=== PATIENT | female | born 1980 | race Caucasian/White ===

== ENCOUNTER 2016-03-18 03:43 | Outpatient (CLI) | payer BC ==
[~2016-03-18] VITALS: Ht 160 cm; Wt 81.4 kg
[2016-03-18 04:10] VITALS: BP 118/75; PULSE 84; TEMP 97.8
[2016-03-18] MEDS ORDERED: PRENATAL PO (04:18)
[2016-03-18] MEDS ORDERED: TYLENOL PM EXTR1 TA1 PO (04:19)
[2016-03-18] MEDS ORDERED: TYLENOL SINUS1 EACH PO (04:20)
[2016-03-18 04:30] VITALS: BP 118/75; PULSE 84; TEMP 97.8
== END 2016-03-18 06:45 | disposition home or self-care (01) ==
LOC: LDRO 03:43
DX: O47.1 False labor at or after 37 completed weeks of gestation (principal); Z3A.37 37 weeks gestation of pregnancy

== ENCOUNTER 2016-04-12 06:33 | Inpatient (IN) | payer BC, OTHER ==
[2016-04-12] VITALS (53 sets, daily range): BP systolic 105–150; BP diastolic 61–97; PULSE 66–127; TEMP 97.8–98.7
[~2016-04-12] VITALS: Ht 157.5 cm; Wt 80.0 kg
[~2016-04-12 06:33] MED LIST: PRENATAL PO; TYLENOL PM EXTR1 TA1 PO; TYLENOL SINUS1 EACH PO
[2016-04-12 07:53] LABS: BASO % 0.3 % (0.0-2.0); EOS % 0.2 % (0-4.0); GRAN # 10.5 (1.4-6.5); GRAN % 83.9 % (42.2-75.2); HEMOGLOBIN 12.3 g/dl (12.5-16.0); LYMPH # 1.2 (1.2-3.4); LYMPH % 9.4 % (20.0-51.0); MEAN CELL VOLUME 83 fl (80.0-100.0); MEAN CORPUSCULAR HEMOGLOBIN 28 pg (27.0-31.0); MEAN CORPUSCULAR HGB CONC 34 g/dl (33.0-37.0); MEAN PLATELET VOLUME 11.6 fl (7.4-10.4); MONO # 0.7 (0.1-0.6); MONO % 5.6 % (1.7-9.3); PLATELET COUNT 241 K/mm3 (130-400); RED BLOOD COUNT 4.36 M/mm3 (4.10-5.30); REDCELL DISTRIBUTION WIDTH-CV 14.6 % (11.5-14.5); WHITE BLOOD COUNT 12.5 K/mm3 (4.8-10.8)
[2016-04-12 07:58] LABS: HEMATOCRIT 36.2 % (37.0-47.0)
[2016-04-13 03:00] VITALS: BP 106/61; PULSE 105; TEMP 98.2
[2016-04-13] MEDS ORDERED: IBU800 M1 PO (07:24)
[2016-04-13] MEDS ORDERED: PERCOCET 325 MG1 TA2 PO (07:25)
[2016-04-13 08:00] VITALS: BP 100/60; PULSE 82; TEMP 98.4
[2016-04-13 19:10] VITALS: BP 114/62; PULSE 96; TEMP 97.9
[2016-04-14 07:28] VITALS: BP 109/69; PULSE 86; TEMP 98.3
== END 2016-04-14 17:10 | disposition home or self-care (01) | DRG 775 ==
LOC: LDR 06:33 → OB 06:56 → LDR 06:56 → OB 22:50
PROVIDERS: Obstetrics & Gynecology
PROC: 10D07Z6 Extraction of Products of Conception, Vacuum, Via Natural or Artificial Opening (ICD-10-PCS; principal; 2016-04-12)
PROC: 0KQM0ZZ Repair Perineum Muscle, Open Approach (ICD-10-PCS; 2016-04-12)
PROC: 3E033VJ Introduction of Other Hormone into Peripheral Vein, Percutaneous Approach (ICD-10-PCS; 2016-04-12)
DX: O48.0 Post-term pregnancy (principal); O69.81X0 Labor and delivery complicated by cord around neck, without compression, not applicable or unspecified; O70.1 Second degree perineal laceration during delivery; O75.81 Maternal exhaustion complicating labor and delivery; Z3A.41 41 weeks gestation of pregnancy; Z37.0 Single live birth
CPT/HCPCS: J2590; J7120

== ENCOUNTER 2016-08-02 21:07 | Inpatient (IN) | payer BC, OTHER ==
[~2016-08-02] VITALS: Ht 160 cm; Wt 68.9 kg
[~2016-08-02 21:07] MED LIST changes: +IBU800 M1 PO; +PERCOCET 325 MG1 TA2 PO
[2016-08-02 22:04] LABS: BASO # 0.1 (0.0-0.2); BASO % 0.4 % (0.0-2.0); EOS % 0.3 % (0-4.0); GRAN # 11.4 (1.4-6.5); GRAN % 83.3 % (42.2-75.2); HEMATOCRIT 38.5 % (37.0-47.0); HEMOGLOBIN 12.8 g/dl (12.5-16.0); LYMPH # 1.5 (1.2-3.4); LYMPH % 11.2 % (20.0-51.0); MEAN CELL VOLUME 83 fl (80.0-100.0); MEAN CORPUSCULAR HEMOGLOBIN 28 pg (27.0-31.0); MEAN CORPUSCULAR HGB CONC 33 g/dl (33.0-37.0); MEAN PLATELET VOLUME 10.8 fl (7.4-10.4); MONO # 0.6 (0.1-0.6); MONO % 4.4 % (1.7-9.3); PLATELET COUNT 308 K/mm3 (130-400); RED BLOOD COUNT 4.64 M/mm3 (4.10-5.30); REDCELL DISTRIBUTION WIDTH-CV 13.7 % (11.5-14.5); WHITE BLOOD COUNT 13.6 K/mm3 (4.8-10.8)
[2016-08-02 22:06] LABS: ALBUMIN 4.3 gm/dL (3.5-5.0); BILIRUBIN,TOTAL 1.5 mg/dL (0.0-1.0); CALCIUM 9.2 mg/dL (8.4-10.2); CREATININE, serum 0.56 mg/dL (0.52-1.25); POTASSIUM 3.8 mmol/L (3.4-5.0); TOTAL PROTEIN 7.7 gm/dL (6.4-8.2)
[2016-08-02 22:12] LABS: PH 5 (5-8); SQUAMOUS EPITHELIAL 0-2 /hpf; URINE APPEARANCE Clear; URINE BACTERIA Rare /hpf; URINE BILIRUBIN Negative (NEGATIVE); URINE BLOOD Negative (NEGATIVE); URINE COLOR Yellow; URINE GLUCOSE Negative (NEGATIVE); URINE KETONE Trace (NEGATIVE); URINE RBC 0-2 /hpf; URINE UROBILINOGEN Negative (NEGATIVE); URINE WBC 0-2 /hpf
[2016-08-03 00:14] VITALS: BP 118/73; PULSE 52; TEMP 97.5
[2016-08-03 04:58] VITALS: BP 107/69; PULSE 77; TEMP 97.2
[2016-08-03 10:15] VITALS: BP 103/58; PULSE 64; TEMP 97.7
[2016-08-03 13:27] VITALS: BP 110/57; PULSE 71; TEMP 98.6
[2016-08-03 17:04] VITALS: BP 120/65; PULSE 72; TEMP 98.9
[2016-08-03 21:44] VITALS: BP 111/59; PULSE 75; TEMP 97.3
[2016-08-04] VITALS (14 sets, daily range): BP systolic 99–126; BP diastolic 56–77; PULSE 65–97; TEMP 98.2–99.1
[2016-08-04 07:15] LABS: BASO % 0.4 % (0.0-2.0); EOS # 0.1 (0.0-0.7); EOS % 0.8 % (0-4.0); GRAN # 8.3 (1.4-6.5); GRAN % 77.3 % (42.2-75.2); LYMPH # 1.6 (1.2-3.4); LYMPH % 14.9 % (20.0-51.0); MEAN CELL VOLUME 85 fl (80.0-100.0); MEAN CORPUSCULAR HGB CONC 32 g/dl (33.0-37.0); MEAN PLATELET VOLUME 10.4 fl (7.4-10.4); MONO # 0.7 (0.1-0.6); MONO % 6.2 % (1.7-9.3); PLATELET COUNT 252 K/mm3 (130-400); RED BLOOD COUNT 4.33 M/mm3 (4.10-5.30); REDCELL DISTRIBUTION WIDTH-CV 13.4 % (11.5-14.5); WHITE BLOOD COUNT 10.8 K/mm3 (4.8-10.8)
[2016-08-04 07:26] LABS: HEMATOCRIT 36.7 % (37.0-47.0); HEMOGLOBIN 11.9 g/dl (12.5-16.0); MEAN CORPUSCULAR HEMOGLOBIN 27 pg (27.0-31.0)
[2016-08-04 07:30] LABS: ADJUSTED CALCIUM 8.6 mg/dL (8.4-10.2); ALBUMIN 3.5 gm/dL (3.5-5.0); BILIRUBIN,TOTAL 1.2 mg/dL (0.0-1.0); CALCIUM 8.2 mg/dL (8.4-10.2); CREATININE, serum 0.46 mg/dL (0.52-1.25); POTASSIUM 3.8 mmol/L (3.4-5.0); TOTAL PROTEIN 6.6 gm/dL (6.4-8.2)
[2016-08-05 01:08] VITALS: BP 102/48; PULSE 80; TEMP 98.9
[2016-08-05 05:42] VITALS: BP 102/52; PULSE 67; TEMP 98.4
[2016-08-05 09:47] VITALS: BP 122/74; PULSE 79; TEMP 98.8
[2016-08-05 15:31] VITALS: BP 106/60; PULSE 84
== END 2016-08-05 19:16 | disposition home or self-care (01) | DRG 417 ==
LOC: COL.ER 21:07 → SURG 23:07
PROVIDERS: Emergency Medicine; Surgery
PROC: BF131ZZ Fluoroscopy of Gallbladder and Bile Ducts using Low Osmolar Contrast (ICD-10-PCS; 2016-08-04)
PROC: 0FT44ZZ Resection of Gallbladder, Percutaneous Endoscopic Approach (ICD-10-PCS; principal; 2016-08-04 14:45)
PROC: 0FC98ZZ Extirpation of Matter from Common Bile Duct, Via Natural or Artificial Opening Endoscopic (ICD-10-PCS; 2016-08-05)
DX: K80.67 Calculus of gallbladder and bile duct with acute and chronic cholecystitis with obstruction (principal); K85.10 Biliary acute pancreatitis without necrosis or infection
CPT/HCPCS: C1769; J1100; J1885; J2250; J2405; J2704; J2710; J2765; J3010; J7030; J7120; Q9967

== ENCOUNTER → 2023-05-09 | Outpatient (CLI) | payer BC | LOC: MC.RAD 09:00 | DX: Z12.31 Encounter for screening mammogram for malignant neoplasm of breast (principal) ==